=== PATIENT | male | born 1955 ===

== ENCOUNTER 2021-08-15 09:00 | Outpatient (CLI) | payer OTHER | END 2021-08-15 09:15 | disposition home or self-care (01) | LOC: PPH VACUNA 09:00 | PROVIDERS: ATTEND Emergency Medicine Pediatric Emergency Medicine | DX: Z23 Encounter for immunization (principal) ==

== ENCOUNTER 2021-08-15 10:18 | Outpatient (CLI) | payer OTHER | END 2021-08-15 10:20 | disposition home or self-care (01) | LOC: RAD 10:18 | PROVIDERS: ATTEND Internal Medicine | DX: I10 Essential (primary) hypertension (principal) ==